=== PATIENT | male | born 2000 | race Caucasian/White ===

== ENCOUNTER 2019-02-04 23:37 | Emergency (ER) | payer OTHER ==
[2019-02-05 00:26] LABS: ABS Lymphocytes 1.1 10^3/ul (1.0-4.8); ABS Monocytes 0.7 10^3/ul (0-0.8); ABS Neutrophils 6.7 10^3/ul (1.5-7.7); Eosinophil % 0.2 %; Hematocrit 46 % (42-52); Hemoglobin 16.1 g/dL (14.0-18.0); Lymphocyte % 13.3 %; Mean Corpuscular HGB Conc 35 g/dL (31-36); Mean Corpuscular Hemoglobin 29 pg (27-31); Mean Corpuscular Volume 84 fL (80-94); Mean Platelet Volume 7.6 fL (7.4-10.4); Platelet Count 279 10^3/uL (150-450); Red Blood Count 5.48 10^6 /uL (4.18-5.48); Red Cell Distribution Width 13 % (10-15); White Blood Count 8.6 10^3/uL (3.5-10.8)
[2019-02-05 00:37] LABS: BUN/Creatinine Ratio 12.7 (8-20); Calcium 9.1 mg/dL (8.6-10.3); EGFR African American 113.8 (>60); EGFR Non-African American 94.1 (>60); Potassium 4.2 mmol/L (3.5-5.0)
--- NOTE | 2019-02-05 03:05 | ED ---
HPI Febrile Illness - HPI Summary HPI Summary: Patient is a 18 y/o M presenting to [facility] with complaints of fever. He states that he had a fever for the past week and endorses feeling fatigued and experiencing chills, decreased appetite, and diarrhea as well. No nausea is reported. Today, patient had onset of cough, SOB, and light-headedness. He states that he called a nurse line, who advised the patient to come to ED to be evaluated for possible PNA. Patient is on Zoloft. Otherwise, no PMHx is reported. On triage, pain is denied. Home medications and allergies are reviewed. - History of Current Complaint Chief Complaint: EDUpperRespComplaint Time Seen by Provider: 02/05/19 02:59 Hx Obtained From: Patient Onset/Duration: Started Days Ago, Still Present, Worse Since Timing: Constant, Lasting Days Current Severity: None Pain Intensity: 0 Pain Scale Used: 0-10 Numeric Associated Signs and Symptoms: Chills, Cough, Diarrhea, SOB, Other: - positive - fatigue, decreased appetite, light-headed; negative - nausea - Allergy/Home Medications Allergies/Adverse Reactions: Allergies Allergy/AdvReac Type Severity Reaction Status Date / Time ketamine Allergy Vomiting Verified 02/04/19 23:42 PMH/Surg Hx/FS Hx/Imm Hx Sensory History: Denies: Hx Legally Blind, Hx Deafness Opthamlomology History: Denies: Hx Legally Blind EENT History: Denies: Hx Deafness Infectious Disease History: No Infectious Disease History: Denies: Traveled Outside the [place] in Last 30 Days - Family History Known Family History: Negative: Hypertension, Diabetes - Social History Occupation: Student Substance Use Type: Reports: None Review of Systems Positive: Fever, Chills, Fatigue Positive: Shortness Of Breath, Cough Gastrointestinal: Other - positive - decreased appetite Positive: Diarrhea. Negative: Nausea Neurological: Other - positive - light-headedness All Other Systems Reviewed And Are Negative: Yes Physical Exam - Summary Physical Exam Summary: Appearance: Well-appearing, Well-nourished, lying in bed comfortably Skin: Warm, dry, no obvious rash Eyes: sclera anicteric, no conjunctival pallor ENT: mucous membranes moist, pharynx appears normal Neck: Supple, nontender Respiratory: Slight tachypnea. Clear to auscultation, no signs of respiratory distress Cardiovascular: Mild tachycardia. No murmurs. Normal distal pulses in tibial and radial bilaterally. Abdomen: Soft, nontender, normal active bowel sounds present Musculoskeletal: Normal, Strength/ROM Intact Neurological: A&Ox3, awake and alert, mentation is normal, speech is fluent and appropriate Psychiatric: affect is normal, does not appear anxious or depressed Triage Information Reviewed: Yes Vital Signs On Initial Exam: Initial Vitals Temp Pulse Resp BP Pulse Ox 99.1 F 118 20 135/79 95 02/04/19 23:39 02/04/19 23:39 02/04/19 23:39 02/04/19 23:39 02/04/19 23:39 Vital Signs Reviewed: Yes Diagnostics - Vital Signs Vital Signs Temp Pulse Resp BP Pulse Ox 02/05/19 02:45 96 97 02/05/19 02:44 106 142/82 97 02/05/19 02:16 100.1 F 109 15 150/71 96 02/04/19 23:39 99.1 F 118 20 135/79 95 - Laboratory Lab Results: Lab Results 02/05/19 02/05/19 Range/Units 00:09 00:09 WBC 8.6 (3.5-10.8) 10^3/uL RBC 5.48 (4.18-5.48) 10^6 /uL Hgb 16.1 (14.0-18.0) g/dL Hct 46 (42-52) % MCV 84 (80-94) fL MCH 29 (27-31) pg MCHC 35 (31-36) g/dL RDW 13 (10-15) % Plt Count 279 (150-450) 10^3/uL MPV 7.6 (7.4-10.4) fL Neut % (Auto) 77.7 % Lymph % (Auto) 13.3 % [place] % (Auto) 8.6 % Eos % (Auto) 0.2 % Baso % (Auto) 0.2 % Absolute Neuts (auto) 6.7 (1.5-7.7) 10^3/ul Absolute Lymphs (auto) 1.1 (1.0-4.8) 10^3/ul Absolute Monos (auto) 0.7 (0-0.8) 10^3/ul Absolute Eos (auto) 0.0 (0-0.6) 10^3/ul Absolute Basos (auto) 0.0 (0-0.2) 10^3/ul Absolute Nucleated RBC 0.0 10^3/ul Nucleated RBC % 0.0 Sodium 136 (135-145) mmol/L Potassium 4.2 (3.5-5.0) mmol/L Chloride 101 (101-111) mmol/L Carbon Dioxide 28 (22-32) mmol/L Anion Gap 7 (2-11) mmol/L BUN 13 (6-24) mg/dL Creatinine 1.02 (0.67-1.17) mg/dL Est GFR ( Amer) 113.8 (>60) Est GFR (Non-Af Amer) 94.1 (>60) BUN/Creatinine Ratio 12.7 (8-20) Glucose 105 H (70-100) mg/dL Calcium 9.1 (8.6-10.3) mg/dL Result Diagrams: 02/05/19 00:09 02/05/19 00:09 Lab Statement: Any lab studies that have been ordered have been reviewed, and results considered in the medical decision making process. - Radiology CXR Radiology Interpretation Completed By: ED Physician Summary of Radiographic Findings: Right upper lobe infiltrate, pending official report. Course/Dx - Course Course Of Treatment: Patient is a 18 y/o M presenting to [facility] with complaints of fever. He states that he had a fever for the past week and endorses feeling fatigued and experiencing chills, decreased appetite, and diarrhea as well. No nausea is reported. Today, patient had onset of cough, SOB, and light- headedness. He states that he called a nurse line, who advised the patient to come to ED to be evaluated for possible PNA. On physical exam, patient is noted to be tachycardic, tachypneic, and not in respiratory distress. Bloodwork with no significant abnormalities with exception of gluose 105. CXR showed right upper lobe infiltrate. During ED course, patient received Zithromax was 500 mg and Tylenol 975 mg PO. He was prescribed Zithromax and was discharged to home with [facility] follow up. - Diagnoses Provider Diagnoses: PNA (pneumonia) Discharge ED - Sign-Out/Discharge Documenting (check all that apply): Patient Departure - discharge Patient Received Moderate/Deep Sedation with Procedure: No - Discharge Plan Condition: Good Disposition: HOME Prescriptions: Azithromycin TAB* [Zithromax TAB (Z-OMA) 250 mg #6 tabs] 250 mg PO DAILY #4 tab Patient Education Materials: Pneumonia (ED) Forms: *School Release Referrals: [facility] [Outside] Additional Instructions: I would like to have the folks at [facility] check you on to see if you're ready to return to class. Getting some food intake is important, your body needs nutrition to help fight this infection. - Billing Disposition and Condition Condition: GOOD Disposition: Home - Attestation Statements Document Initiated by Marce: Yes Documenting Scribe: GONSALO REY Provider For Whom Marce is Documenting (Include Credential): WILLIAM TOBIAS MD Scribe Attestation: I, GONSALO REY, scribed for WILLIAM TOBIAS MD on 02/09/19 at 0627. Scribe Documentation Reviewed: Yes Provider Attestation: The documentation as recorded by the GONSALO zamora accurately reflects the service I personally performed and the decisions made by me, WILLIAM TOBIAS MD Status of Scribe Document: Viewed
[2019-02-05] MEDS ORDERED: Azithromycin TAB* 250 MG PO ONE (03:09)
[2019-02-05] MEDS ORDERED: Acetaminophen TAB* 325 MG PO ONE (03:20)
[2019-02-05 03:33] VITALS: BP 139/74
== END 2019-02-05 03:30 | disposition home or self-care (01) ==
LOC: ED 23:37
DX: J18.9 Pneumonia, unspecified organism (principal); R19.7 Diarrhea, unspecified; R06.02 Shortness of breath; R50.9 Fever, unspecified; R42 Dizziness and giddiness
CPT/HCPCS: 36415; 71046; 80048; 85025; 99282; A9270-GY

== ENCOUNTER 2019-05-08 20:16 | Emergency (ER) | payer OTHER ==
[2019-05-08 20:52] LABS: Influenza A Molecular NEGATIVE (Negative); Influenza B Molecular NEGATIVE (Negative)
[2019-05-08 21:39] LABS: ABS Lymphocytes 0.8 10^3/ul (1.0-4.8); ABS Monocytes 1.1 10^3/ul (0-0.8); ABS Neutrophils 8.8 10^3/ul (1.5-7.7); Eosinophil % 0.2 %; Hematocrit 47 % (42-52); Hemoglobin 16.7 g/dL (14.0-18.0); Lymphocyte % 7.5 %; Mean Corpuscular HGB Conc 35 g/dL (31-36); Mean Corpuscular Hemoglobin 30 pg (27-31); Mean Corpuscular Volume 85 fL (80-94); Mean Platelet Volume 7.7 fL (7.4-10.4); Nucleated Red Blood Cells % 0.1; Platelet Count 286 10^3/uL (150-450); Red Blood Count 5.59 10^6 /uL (4.18-5.48); Red Cell Distribution Width 13 % (10-15); White Blood Count 10.8 10^3/uL (3.5-10.8)
[2019-05-08 21:55] LABS: BUN/Creatinine Ratio 10.6 (8-20); Calcium 9.5 mg/dL (8.6-10.3); EGFR African American 110.2 (>60); Potassium 3.8 mmol/L (3.5-5.0)
--- NOTE | 2019-05-08 22:35 | ED ---
Respiratory - HPI Summary HPI Summary: Patient is a 19 y/o M w/ Hx of PNA who presents to [facility] with complaints of non- productive cough, subjective fever, "crackly lungs", SOB, and chest congestion. He additionally endorses chest pain with cough and deep breaths, fatigue, and diffuse body aches. Patient states that he was diagnosed with PNA approximately three months ago. He was placed on antibiotics and was improved after this course at the time. He states that Sx onset yesterday, 05/07/19. N/V/D are denied. On triage, pain is rated 2/10. Home medications and allergies are reviewed. - History of Current Complaint Chief Complaint: EDFever Stated Complaint: COUGH/CONGESTION/FEVER PER PT Time Seen by Provider: 05/08/19 22:03 Hx Obtained From: Patient Onset/Duration: Lasting Hours, Still Present Current Severity: Mild Pain Intensity: 2 Character: Cough (Nonproductive) Aggravating Factor(s): Deep Breaths, Other - cough Associated Signs and Symptoms: Fever, SOB, Chest Pain with Cough, Pleuritic Chest Pain - Allergy/Home Medications Allergies/Adverse Reactions: Allergies Allergy/AdvReac Type Severity Reaction Status Date / Time ketamine Allergy Vomiting Verified 05/08/19 22:25 Home Medications: Home Medications Sertraline* [Zoloft*] 25 mg PO DAILY 05/08/19 [History Confirmed 05/08/19] PMH/Surg Hx/FS Hx/Imm Hx Respiratory History: Reports: Hx Pneumonia, Other Respiratory Problems/ Disorders - HX PNEUMONIA 02/2019 Sensory History: Denies: Hx Legally Blind, Hx Deafness Opthamlomology History: Denies: Hx Legally Blind EENT History: Denies: Hx Deafness Infectious Disease History: No Infectious Disease History: Denies: Traveled Outside the [place] in Last 30 Days - Family History Known Family History: Negative: Hypertension, Diabetes - Social History Alcohol Use: None Substance Use Type: Reports: None Smoking Status (MU): Never Smoked Tobacco Review of Systems - ROS Summary Review of Systems Summary: Home Medications Medication Instructions Recorded Confirmed Type Sertraline* [Zoloft*] 25 mg PO DAILY 05/08/19 05/08/19 History ceFUROXime 250 MG TAB [Ceftin TAB 500 mg PO BID #28 tab 05/08/19 Rx 250 MG(*)] Constitutional: Other - positive - diffuse body aches Positive: Fever, Fatigue Positive: Chest Pain - with cough and deep breaths Respiratory: Other - positive - "crackly lungs" Positive: Shortness Of Breath, Cough Negative: Vomiting, Diarrhea, Nausea All Other Systems Reviewed And Are Negative: Yes Physical Exam - Summary Physical Exam Summary: General: Well-developed, Well-nourished, Mildly Ill-Appearing Male. No acute distress. HEENT: Normocephalic, Atraumatic. Eyes: Conjuctiva normal, PERRL. Oropharynx: Clear, mucous membranes moist, (-) exudates. Neck: Soft, FROM, (-) lymphadenopathy, (-) thyromegaly, (-) JVD. Cardiovascular: Normal sinus rhythm, (-) murmur. Lungs: Loose sounding cough with transmitted upper airway noises, no obvious consolidation; (-) wheezes, (-) rales, (-) rhonchi. Abdomen: Soft, non-tender, non-distended, (-) organomegaly, normal bowel sounds. Back: (-) CVA tenderness Extremities: No edema. Skin: Warm, dry, (-) rash. Neuro: Alert and oriented x3, no focal deficits. Psychiatric: Mood normal, affect normal. Triage Information Reviewed: Yes Vital Signs On Initial Exam: Initial Vitals Temp Pulse Resp BP Pulse Ox 99.4 F 128 20 118/67 96 05/08/19 20:18 05/08/19 20:18 05/08/19 20:18 05/08/19 20:18 05/08/19 20:18 Vital Signs Reviewed: Yes Procedures - Sedation Patient Received Moderate/Deep Sedation with Procedure: No Diagnostics - Vital Signs Vital Signs Temp Pulse Resp BP Pulse Ox 05/08/19 20:18 99.4 F 128 20 118/67 96 - Laboratory Lab Results: Lab Results 05/08/19 05/08/19 05/08/19 Range/Units 20:21 21:31 21:32 WBC 10.8 (3.5-10.8) 10^3/uL RBC 5.59 H (4.18-5.48) 10^6 /uL Hgb 16.7 (14.0-18.0) g/dL Hct 47 (42-52) % MCV 85 (80-94) fL MCH 30 (27-31) pg MCHC 35 (31-36) g/dL RDW 13 (10-15) % Plt Count 286 (150-450) 10^3/uL MPV 7.7 (7.4-10.4) fL Neut % (Auto) 82.1 % Lymph % (Auto) 7.5 % [place] % (Auto) 9.9 % Eos % (Auto) 0.2 % Baso % (Auto) 0.3 % Absolute Neuts (auto) 8.8 H (1.5-7.7) 10^3/ul Absolute Lymphs (auto) 0.8 L (1.0-4.8) 10^3/ul Absolute Monos (auto) 1.1 H (0-0.8) 10^3/ul Absolute Eos (auto) 0.0 (0-0.6) 10^3/ul Absolute Basos (auto) 0.0 (0-0.2) 10^3/ul Absolute Nucleated RBC 0.0 10^3/ul Nucleated RBC % 0.1 Sodium 138 (135-145) mmol/L Potassium 3.8 (3.5-5.0) mmol/L Chloride 105 (101-111) mmol/L Carbon Dioxide 26 (22-32) mmol/L Anion Gap 7 (2-11) mmol/L BUN 11 (6-24) mg/dL Creatinine 1.04 (0.67-1.17) mg/dL Est GFR ( Amer) 110.2 (>60) Est GFR (Non-Af Amer) 91.0 (>60) BUN/Creatinine Ratio 10.6 (8-20) Glucose 96 (70-100) mg/dL Calcium 9.5 (8.6-10.3) mg/dL Influenza A (Rapid) Negative (Negative) Influenza B (Rapid) Negative (Negative) Result Diagrams: 05/08/19 21:32 05/08/19 21:31 Lab Statement: Any lab studies that have been ordered have been reviewed, and results considered in the medical decision making process. - Radiology CXR Radiology Interpretation Completed By: ED Physician Summary of Radiographic Findings: Left lower lobe PNA, pending official report. Disposition - Course Course Of Treatment: 19-year-old male presenting with 1 day history of cough and congestion. Fever started yesterday. Patient concerned because his symptoms are similar to when he had pneumonia in January. X-ray looks much improved from January. Patient given During ED course, patient received Ceftin 500 mg PO. Patient then discharge to home. Had vomiting as he was being discharged. This was 40 minutes after taking the medication. Patient had a prescription for Zofran called and advised him to take one 20 minutes prior to the medication. Continue Tylenol and ibuprofen for fever. Follow-up with PCP. Follow up sooner for any worsening symptoms. - Diagnoses Provider Diagnoses: LLL pneumonia Discharge ED - Sign-Out/Discharge Documenting (check all that apply): Patient Departure - discharge - Discharge Plan Condition: Stable Disposition: HOME Prescriptions: ceFUROXime 250 MG TAB [Ceftin TAB 250 MG(*)] 500 mg PO BID #28 tab Ondansetron ODT TAB* [Zofran 4 MG Odt TAB*] 4 mg PO Q6H PRN #12 tab.odt PRN Reason: Nausea Patient Education Materials: Pneumonia (ED) Referrals: [facility] [place] [Primary Care Provider] - 3 Days Additional Instructions: PLEASE RETURN TO ED FOR ANY NEW OR WORSENING SYMPTOMS. PLEASE FOLLOW UP WITH YOUR PRIMARY CARE PHYSICIAN WITHIN THREE DAYS. - Billing Disposition and Condition Condition: STABLE Disposition: Home - Attestation Statements Document Initiated by Glenysibe: Yes Documenting Scribe: GONSALO REY Provider For Whom Marce is Documenting (Include Credential): JONAH TUCKER MD Scribe Attestation: GONSALO Kaiser, scribed for JONAH TUCKER MD on 05/09/19 at 0136. Scribe Documentation Reviewed: Yes Provider Attestation: The documentation as recorded by the GONSALO zamora accurately reflects the service I personally performed and the decisions made by me, JONAH TUCKER MD Status of Scribe Document: Viewed
[2019-05-08 22:56] VITALS: BP 136/80
== END 2019-05-08 22:51 | disposition home or self-care (01) ==
LOC: ED 20:16
DX: J18.9 Pneumonia, unspecified organism (principal); R50.9 Fever, unspecified; R07.9 Chest pain, unspecified; R05 Cough; Z79.899 Other long term (current) drug therapy; R53.83 Other fatigue; R06.02 Shortness of breath
CPT/HCPCS: 36415; 71046; 80048; 85025; 99282